=== PATIENT | male | born 1965 | race Caucasian/White ===

== ENCOUNTER 2017-09-11 13:16 | Emergency (ER) | payer BC ==
[2017-09-11] MEDS: HYDROCODONE/APAP (5/325) TAB PO (13:54)
== END 2017-09-11 15:01 | disposition home or self-care (01) ==
LOC: FTE 13:16
DX: S20.219A Contusion of unspecified front wall of thorax, initial encounter (principal); I10 Essential (primary) hypertension; F17.210 Nicotine dependence, cigarettes, uncomplicated; V28.9XXA Unspecified motorcycle rider injured in noncollision transport accident in traffic accident, initial encounter
CPT/HCPCS: 71045; 93005; 99284-25

== ENCOUNTER 2018-02-19 00:23 | Emergency (ER) | payer BC | END 2018-02-19 01:15 | disposition home or self-care (01) | LOC: FTE 00:23 | DX: L02.414 Cutaneous abscess of left upper limb (principal); I10 Essential (primary) hypertension; F17.210 Nicotine dependence, cigarettes, uncomplicated | CPT/HCPCS: 99283; Z7502 ==

== ENCOUNTER 2018-04-03 04:49 | Emergency (ER) | payer MEDICAID, BC ==
[2018-04-03] MEDS: TRIMETHOPRIM/SULFAMETHOX (DS) TAB PO (06:02)
[2018-04-03] MEDS: CLINDAMYCIN 900 MG INJ IM (06:02)
== END 2018-04-03 06:22 | disposition home or self-care (01) ==
LOC: E/R 04:49
DX: L02.511 Cutaneous abscess of right hand (principal); R40.2142 Coma scale, eyes open, spontaneous, at arrival to emergency department; R40.2352 Coma scale, best motor response, localizes pain, at arrival to emergency department; R40.2252 Coma scale, best verbal response, oriented, at arrival to emergency department; B95.62 Methicillin resistant Staphylococcus aureus infection as the cause of diseases classified elsewhere; I10 Essential (primary) hypertension; F17.210 Nicotine dependence, cigarettes, uncomplicated
CPT/HCPCS: 96372; 99284-25